=== PATIENT | female | born 1970 | race Caucasian/White ===

== ENCOUNTER 2020-11-11 15:12 | Emergency (ER) | payer SELFPAY ==
[~2020-11-11] VITALS: Ht 154.9 cm; Wt 61.0 kg
[2020-11-11] MEDS ORDERED: KETOROLAC 30 MG/1 ML IM ONE (16:00)
[2020-11-11] MEDS ORDERED: KETOROLAC 30 MG/1 ML ONE (16:02)
[2020-11-11] MEDS ORDERED: ACETAMINOPHEN 325 MG TABLET ONE ×2 (16:15→16:16)
--- NOTE | 2020-11-11 16:26 | NUR ---
REPORT TAKEN FROM MARQUISE ATKINSON, CARE ASSUMED BY THIS RN.
[2020-11-11] MEDS ORDERED: ACETAMINOPHEN 325 MG TABLET PO ONE (16:30)
[2020-11-11 18:14] VITALS: BP 143/90
--- NOTE | 2020-11-11 18:30 | NUR ---
PT GIVEN DC INSTRUCTIONS AND SCRIPT, WELL INCENTIVE SPIROMETER. PT IS A&O, RESPS EVEN AND UNLABORED, AMBULATORY TO DC WITH STEADY GAIT. PT EDUCATED REGARDING RX FOR NORCO AND NAPROSYN. NADN AT DISCHARGE.
== END 2020-11-11 18:17 | disposition home or self-care (01) ==
LOC: ED 17:23
DX: S22.42XA Multiple fractures of ribs, left side, initial encounter for closed fracture (principal); S83.412A Sprain of medial collateral ligament of left knee, initial encounter; S70.12XA Contusion of left thigh, initial encounter; W18.30XA Fall on same level, unspecified, initial encounter; Y93.89 Activity, other specified; Y92.410 Unspecified street and highway as the place of occurrence of the external cause; Y99.8 Other external cause status
CPT/HCPCS: 71045; 73552; 73564; 73630; 96372; 99284; J1885